=== PATIENT | female | born 1965 | race Hispanic/Latino ===

== ENCOUNTER 2020-07-22 07:35 | Day surgery (SDC) | payer BC ==
[2020-07-19 11:57] LABS: BASOPHILS % (AUTO) 0.5 % (0.0-5.0); EOSINOPHILS % (AUTO) 1.4 % (0.0-8.0); HEMATOCRIT 41.4 % (36-48); LYMPHOCYTES % (AUTO) 46.3 % (21.0-51.0); MEAN CORPUSCULAR HEMOGLOBIN 27.1 pg (27.0-33.0); MEAN CORPUSCULAR HGB CONC 30.9 g/dL (32.0-36.0); MEAN CORPUSCULAR VOLUME 87.7 fL (79-99); MONOCYTES % (AUTO) 5.4 % (3.0-13.0); NEUTROPHILS % (AUTO) 46.3 % (40.0-77.0); PLATELET COUNT (AUTO) 299 K/uL (130-400); RED BLOOD CELL COUNT(AUTO) 4.72 MIL/uL (4.00-5.50); RED CELL DISTRIBUTION WIDTH 13.9 % (11.0-15.5); WHITE BLOOD COUNT (AUTO) 7.9 K/uL (4.8-10.8)
[2020-07-21 09:52] VITALS: BP 116/62
[~2020-07-22] VITALS: Ht 152.4 cm; Wt 43.1 kg
[2020-07-22] VITALS (18 sets, daily range): BP systolic 104–129; BP diastolic 68–80
[~2020-07-22 07:35] MED LIST: LACTATED RINGERS 1000ML 1,000 ML IV SCH; PROG100C11 PO
[2020-07-22] MEDS: CEFAZOLIN SODIUM 1 GM VIAL IVP SCH ×2 (08:00→10:23)
[2020-07-22] MEDS ORDERED: PROPOFOL 10 MG/ML 20ML VIAL IV ONE (08:43)
[2020-07-22] MEDS ORDERED: SUCCINYLCHOLINE 200MG/10ML SYR ONE (08:43)
[2020-07-22] MEDS ORDERED: LIDOCAINE PF 2% 5ML ABBOJECT ONE (08:43)
[2020-07-22] MEDS ORDERED: MIDAZOLAM HCL 1 MG/ML 2ML VIAL ONE (08:45)
[2020-07-22] MEDS ORDERED: ONDANSETRON HCL 4 MG/2 ML VIAL ONE (09:06)
[2020-07-22] MEDS ORDERED: DEXAMETHASONE SOD PHOSPHATE 10MG/ML 1ML VIAL ONE (09:06)
--- NOTE | 2020-07-22 10:45 | NUR ---
Pt received Pt was received from PACU via stretcher accompanied by Candy Sims RN. Pt awake and alert but drowsy; able to follow command. Has earnest pad in place with scant bleeding noted. Denies any pain or discomfort. was then brought in and is at bedside. Call light within reach.
--- NOTE | 2020-07-22 11:25 | NUR ---
D/C Pt prepared for discharge. Verbal discharge instructions given to pt and . Written instructions and prescription given to . Discussed d/c instructions with pt and with f/u appt time and date. Both verbalized understanding. No further bleeding to earnest pad noted. Pt denies any discomfort or pain. Pt was then taken out of facility in w/c to private car.
== END 2020-07-22 11:35 ==
LOC: DAH 07:35
PROVIDERS: ATTEND Obstetrics & Gynecology
DX: N95.0 Postmenopausal bleeding (principal); Z20.828 Contact with and (suspected) exposure to other viral communicable diseases; M81.0 Age-related osteoporosis without current pathological fracture; Z98.51 Tubal ligation status
CPT/HCPCS: 36415; 58558; 84703; 85025; 86850; 86900; 86901; A4215; A4221; A4222; A4223; A4351; A4355; A4510; A4600; A4663; A6260; C9803; J0330; J0690; J1100; J2001; J2250; J2405; J2704; J7030; J7120; U0003